=== PATIENT | male | born 1995 | race Caucasian/White ===

== ENCOUNTER 2018-09-07 13:31 | Emergency (ER) | payer OTHER ==
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
[2018-09-07 14:01] LABS: PLATELET COUNT 285 10^3/uL (150-400)
[2018-09-07 17:04] VITALS: BP 122/78
--- NOTE | 2018-09-07 17:21 | ASMTTCLDSP ---
TLC Discharge Disposition Disposition: Answers: Discharge If Answers: Yes DISCHARGED: Patient/family given suicide hotline info & SAMHSA brochure? Disposition Notes: Notes: Pt was given resources for therapist in [place]. Pt stated he will follow-up. I also gave pt resources for [facility]. Discharge Concerns/Recommendations: Notes: In consultation with [facility] ED physician, Brayan Mueller MD and on-call psychiatrist Jose M Shanks MD both concurred that pt does not appear to meet 27-65 criteria requiring psychiatric hospitalization as pt does not appear to be an imminent risk of harm to self/others/gravely disabled due to a mental illness condition. Psychiatrist vacating M1 Jose M Shanks MD Hold: Date and time M1 hold 09/07/2018 05:00 PM vacated (time format is hh:mm): Type of Hold: Answers: /72-hour Hold Hold initiated by: Answers: Police Date Signed: 09/07/2018 05:21 PM Electronically Signed By:Jeannette Stevens
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
== END 2018-09-07 17:15 | disposition home or self-care (01) ==
LOC: EEVIPCON 13:31
DX: R45.851 Suicidal ideations (principal); F32.89 Other specified depressive episodes; S62.316D Displaced fracture of base of fifth metacarpal bone, right hand, subsequent encounter for fracture with routine healing
CPT/HCPCS: 80305; G0480